=== PATIENT | female | born 2000 | race Caucasian/White ===

== ENCOUNTER 2018-06-03 16:58 | Inpatient (IN) | payer BC ==
[2018-06-03 17:41] LABS: Basophils # (A) 0.1 k/uL (0-0.2); Basophils % (A) 1 %; Eosinophils # (A) 0.2 k/uL (0-0.7); Eosinophils % (A) 2 %; HCT 36.6 % (34.0-46.0); HGB 12.4 gm/dL (11.4-16.0); Lymphocytes # (A) 2.6 k/uL (1.0-4.8); Lymphocytes % (A) 21 %; MCH 28.3 pg (25.0-35.0); MCHC 33.9 g/dL (31.0-37.0); MCV 83.6 fL (80.0-100.0); Monocytes # (A) 0.5 k/uL (0-1.0); Monocytes % (A) 4 %; Neutrophils # (A) 8.9 k/uL (1.3-7.7); Neutrophils % (A) 72 %; Platelet Count 275 k/uL (150-450); RBC 4.38 m/uL (3.80-5.40); RDW 12.6 % (11.5-15.5); WBC 12.4 k/uL (4.0-11.0)
[2018-06-03 17:42] LABS: Appearance,Urine Clear (Clear); Bacteria,Urine Rare /hpf; Bilirubin,Urine Negative (Negative); Blood,Urine Moderate (Negative); Color,Urine Dark Yellow; Glucose,Urine (UA) Negative (Negative); Ketones,Urine Negative (Negative); Leukocyte Esterase,Urine Negative (Negative); Nitrite,Urine Negative (Negative); Protein,Urine Negative (Negative); RBC,Urine 6 /hpf (0-5); Specific Gravity,Urine 1.011 (1.001-1.035); Squamous Epithelial Cell,Urine 1 /hpf (0-4); Urobilinogen,Urine <2.0 mg/dL (<2.0); WBC,Urine 2 /hpf (0-5)
[2018-06-03 17:52] LABS: ALT 26 U/L (9-52); AST 21 U/L (14-36); Albumin 4.4 g/dL (3.5-5.0); Alkaline Phosphatase 90 U/L (38-126); Anion Gap 10 mmol/L; Blood Urea Nitrogen 11 mg/dL (7-17); C Reactive Protein 31.5 mg/L (<10.0); Calcium 9.8 mg/dL (8.4-10.2); Carbon Dioxide 23 mmol/L (22-30); Chloride 105 mmol/L (98-107); Glucose 96 mg/dL (74-99); Magnesium 1.9 mg/dL (1.6-2.3); Partial Thromboplastin Time 23.8 sec (22.0-30.0); Prothrombin Time 9.8 sec (9.0-12.0); Sodium 138 mmol/L (137-145); Total Bilirubin 0.7 mg/dL (0.2-1.3); Total Protein 7.4 g/dL (6.3-8.2)
--- NOTE | 2018-06-03 18:07 | CT ---
EXAMINATION TYPE: CT brain wo/w con DATE OF EXAM: 06/03/2018 COMPARISON: None HISTORY: Left sided peripheral vision loss CT DLP: 1927.2 mGycm Automated exposure control for dose reduction was used. CONTRAST: Performed without and with IV Contrast, patient injected with 100 mL of Isovue 300. FINDINGS: Ventricles and sulci appear normal. There is no mass effect nor midline shift. There is no sign of in tracranial hemorrhage. There is no evidence of cerebral edema. There is no pathologic enhancement. Th ere is no evidence of orbital mass. Sella turcica appears normal. IMPRESSION: NORMAL CT SCAN OF THE BRAIN.
[2018-06-03 18:18] LABS: Creatine Kinase 57 U/L (30-135)
[2018-06-03 18:32] LABS: Creatine Kinase MB <0.2 ng/mL (0.0-2.4); Troponin I <0.012 ng/mL (0.000-0.034)
[2018-06-03] MEDS ORDERED: SODIUM CHLORIDE 0.9% 1,000 ML IV STA (19:26)
--- NOTE | 2018-06-03 19:26 | ED ---
Eye Problem HPI - General Chief complaint: Eye Problems Stated complaint: lt eye vision problem Time Seen by Provider: 06/03/18 17:14 Source: patient Mode of arrival: ambulatory Limitations: no limitations - History of Present Illness Initial comments: This is a 18-year-old female with a benign past medical history the onset 3 days ago of left upper visual field distortion. She states she sees corrigan or darkness and that feel no trauma no headache no fevers chills nausea vomiting sweats no history of any neurological disorders. No weakness or upper or lower extremities. She was seen by her hospital chaplain today and found have normal eye pressure is no evidence of any retinal attachment. She was sent here for further evaluation. chief complaint: eye pain - Related Data Home Medications Medication Instructions Recorded Confirmed Albuterol Inhaler [Ventolin Hfa 2 puff INHALATION RT-Q6H PRN 06/03/18 06/03/18 Inhaler] Allergies Allergy/AdvReac Type Severity Reaction Status Date / Time Penicillins Allergy Rash/Hives Verified 06/03/18 17:10 Review of Systems ROS Statement: Those systems with pertinent positive or pertinent negative responses have been documented in the HPI. ROS Other: All systems not noted in ROS Statement are negative. Past Medical History Past Medical History: No Reported History History of Any Multi-Drug Resistant Organisms: None Reported Past Surgical History: No Surgical Hx Reported Past Psychological History: No Psychological Hx Reported Smoking Status: Never smoker Past Alcohol Use History: None Reported Past Drug Use History: None Reported General Exam - General Exam Comments Initial Comments: This is a well-developed well-nourished awake alert oriented 3 female Limitations: no limitations General appearance: alert, in no apparent distress Head exam: Present: atraumatic, normocephalic, normal inspection Eye exam: Present: normal appearance, PERRL, EOMI. Absent: scleral icterus, conjunctival injection, periorbital swelling Pupils: Present: other (U Yoel dilated secondary to medication from her hospital chaplain. Some cupping of the left optic nerve area. No other abnormality seen. On confrontation patient does have distortion of the left upper ocular field) ENT exam: Present: normal exam, mucous membranes moist Neck exam: Present: normal inspection. Absent: tenderness, meningismus, lymphadenopathy Respiratory exam: Present: normal lung sounds bilaterally. Absent: respiratory distress, wheezes, rales, rhonchi, stridor Cardiovascular Exam: Present: normal rhythm, tachycardia, normal heart sounds. Absent: systolic murmur, diastolic murmur, rubs, gallop, clicks GI/Abdominal exam: Present: soft, normal bowel sounds. Absent: distended, tenderness, guarding, rebound, rigid Extremities exam: Present: normal inspection, full ROM, normal capillary refill. Absent: tenderness, pedal edema, joint swelling, calf tenderness Back exam: Present: normal inspection Neurological exam: Present: alert, oriented X3, CN II-XII intact Psychiatric exam: Present: normal affect, normal mood Skin exam: Present: warm, dry, intact, normal color. Absent: rash Course Vital Signs 06/03/18 06/03/18 06/03/18 17:02 18:19 19:16 Temperature 98.4 F 100.2 F H 99.1 F Pulse Rate 126 H 118 H 112 H Respiratory 20 16 17 Rate Blood Pressure 112/71 129/81 120/75 O2 Sat by Pulse 98 98 Oximetry Medical Decision Making - Medical Decision Making I did discuss findings with the patient family members. Also with Dr. Alicea. Patient will be admitted with neurological consultation ophthalmology consultation also MRI will be ordered. - Lab Data Result diagrams: 06/03/18 17:29 06/03/18 17:29 Lab Results 06/03/18 06/03/18 06/03/18 Range/Units 17:29 17:29 17:29 WBC 12.4 H (4.0-11.0) k/uL RBC 4.38 (3.80-5.40) m/uL Hgb 12.4 (11.4-16.0) gm/dL Hct 36.6 (34.0-46.0) % MCV 83.6 (80.0-100.0) fL MCH 28.3 (25.0-35.0) pg MCHC 33.9 (31.0-37.0) g/dL RDW 12.6 (11.5-15.5) % Plt Count 275 (150-450) k/uL Neutrophils % 72 % Lymphocytes % 21 % Monocytes % 4 % Eosinophils % 2 % Basophils % 1 % Neutrophils # 8.9 H (1.3-7.7) k/uL Lymphocytes # 2.6 (1.0-4.8) k/uL Monocytes # 0.5 (0-1.0) k/uL Eosinophils # 0.2 (0-0.7) k/uL Basophils # 0.1 (0-0.2) k/uL PT 9.8 (9.0-12.0) sec INR 1.0 (<1.2) APTT 23.8 (22.0-30.0) sec Sodium 138 (137-145) mmol/L Potassium 4.0 (3.5-5.1) mmol/L Chloride 105 (98-107) mmol/L Carbon Dioxide 23 (22-30) mmol/L Anion Gap 10 mmol/L BUN 11 (7-17) mg/dL Creatinine 0.60 (0.52-1.04) mg/dL Est GFR (CKD-EPI)AfAm >90 (>60 ml/min/1.73 sqM) Est GFR (CKD-EPI)NonAf >90 (>60 ml/min/1.73 sqM) Glucose 96 (74-99) mg/dL Calcium 9.8 (8.4-10.2) mg/dL Magnesium 1.9 (1.6-2.3) mg/dL Total Bilirubin 0.7 (0.2-1.3) mg/dL AST 21 (14-36) U/L ALT 26 (9-52) U/L Alkaline Phosphatase 90 (38-126) U/L Total Creatine Kinase (30-135) U/L CK-MB (CK-2) (0.0-2.4) ng/mL CK-MB (CK-2) Rel Index Troponin I (0.000-0.034) ng/mL C-Reactive Protein 31.5 H (<10.0) mg/L Total Protein 7.4 (6.3-8.2) g/dL Albumin 4.4 (3.5-5.0) g/dL TSH 2.780 (0.465-4.680) mIU/L Urine Color Urine Appearance (Clear) Urine pH (5.0-8.0) Ur Specific [place] (1.001-1.035) Urine Protein (Negative) Urine Glucose (UA) (Negative) Urine Ketones (Negative) Urine Blood (Negative) Urine Nitrite (Negative) Urine Bilirubin (Negative) Urine Urobilinogen (<2.0) mg/dL Ur Leukocyte Esterase (Negative) Urine RBC (0-5) /hpf Urine WBC (0-5) /hpf Ur Squamous Epith Cells (0-4) /hpf Urine Bacteria (None) /hpf Urine HCG, Qual (Not Detectd) 06/03/18 06/03/18 06/03/18 Range/Units 17:29 17:29 17:29 WBC (4.0-11.0) k/uL RBC (3.80-5.40) m/uL Hgb (11.4-16.0) gm/dL Hct (34.0-46.0) % MCV (80.0-100.0) fL MCH (25.0-35.0) pg MCHC (31.0-37.0) g/dL RDW (11.5-15.5) % Plt Count (150-450) k/uL Neutrophils % % Lymphocytes % % Monocytes % % Eosinophils % % Basophils % % Neutrophils # (1.3-7.7) k/uL Lymphocytes # (1.0-4.8) k/uL Monocytes # (0-1.0) k/uL Eosinophils # (0-0.7) k/uL Basophils # (0-0.2) k/uL PT (9.0-12.0) sec INR (<1.2) APTT (22.0-30.0) sec Sodium (137-145) mmol/L Potassium (3.5-5.1) mmol/L Chloride (98-107) mmol/L Carbon Dioxide (22-30) mmol/L Anion Gap mmol/L BUN (7-17) mg/dL Creatinine (0.52-1.04) mg/dL Est GFR (CKD-EPI)AfAm (>60 ml/min/1.73 sqM) Est GFR (CKD-EPI)NonAf (>60 ml/min/1.73 sqM) Glucose (74-99) mg/dL Calcium (8.4-10.2) mg/dL Magnesium (1.6-2.3) mg/dL Total Bilirubin (0.2-1.3) mg/dL AST (14-36) U/L ALT (9-52) U/L Alkaline Phosphatase (38-126) U/L Total Creatine Kinase 57 (30-135) U/L CK-MB (CK-2) <0.2 (0.0-2.4) ng/mL CK-MB (CK-2) Rel Index Troponin I <0.012 (0.000-0.034) ng/mL C-Reactive Protein (<10.0) mg/L Total Protein (6.3-8.2) g/dL Albumin (3.5-5.0) g/dL TSH (0.465-4.680) mIU/L Urine Color Dark Yellow Urine Appearance Clear (Clear) Urine pH 6.0 (5.0-8.0) Ur Specific [place] 1.011 (1.001-1.035) Urine Protein Negative (Negative) Urine Glucose (UA) Negative (Negative) Urine Ketones Negative (Negative) Urine Blood Moderate H (Negative) Urine Nitrite Negative (Negative) Urine Bilirubin Negative (Negative) Urine Urobilinogen <2.0 (<2.0) mg/dL Ur Leukocyte Esterase Negative (Negative) Urine RBC 6 H (0-5) /hpf Urine WBC 2 (0-5) /hpf Ur Squamous Epith Cells 1 (0-4) /hpf Urine Bacteria Rare H (None) /hpf Urine HCG, Qual Not Detected (Not Detectd) - Radiology Data Radiology results: report reviewed (I did review the imaging and report no acute findings.), image reviewed Disposition Clinical Impression: CVA (cerebral vascular accident), Visual field defect of left eye Disposition: ADMITTED IP TO THIS [facility] Condition: Stable Referrals: Bryson Whelan Jr, [Primary Care Provider] - 1-2 days
[2018-06-03] MEDS ORDERED: ASPIRIN 325 MG TAB PO STA (19:30)
--- NOTE | 2018-06-03 19:44 | ED ---
Medical Decision Making - Lab Data Result diagrams: 06/03/18 17:29 18 17:29 Lab Results 06/03/18 06/03/18 06/03/18 Range/Units 17:29 17:29 17:29 WBC 12.4 H (4.0-11.0) k/uL RBC 4.38 (3.80-5.40) m/uL Hgb 12.4 (11.4-16.0) gm/dL Hct 36.6 (34.0-46.0) % MCV 83.6 (80.0-100.0) fL MCH 28.3 (25.0-35.0) pg MCHC 33.9 (31.0-37.0) g/dL RDW 12.6 (11.5-15.5) % Plt Count 275 (150-450) k/uL Neutrophils % 72 % Lymphocytes % 21 % Monocytes % 4 % Eosinophils % 2 % Basophils % 1 % Neutrophils # 8.9 H (1.3-7.7) k/uL Lymphocytes # 2.6 (1.0-4.8) k/uL Monocytes # 0.5 (0-1.0) k/uL Eosinophils # 0.2 (0-0.7) k/uL Basophils # 0.1 (0-0.2) k/uL PT 9.8 (9.0-12.0) sec INR 1.0 (<1.2) APTT 23.8 (22.0-30.0) sec Sodium 138 (137-145) mmol/L Potassium 4.0 (3.5-5.1) mmol/L Chloride 105 (98-107) mmol/L Carbon Dioxide 23 (22-30) mmol/L Anion Gap 10 mmol/L BUN 11 (7-17) mg/dL Creatinine 0.60 (0.52-1.04) mg/dL Est GFR (CKD-EPI)AfAm >90 (>60 ml/min/1.73 sqM) Est GFR (CKD-EPI)NonAf >90 (>60 ml/min/1.73 sqM) Glucose 96 (74-99) mg/dL Calcium 9.8 (8.4-10.2) mg/dL Magnesium 1.9 (1.6-2.3) mg/dL Total Bilirubin 0.7 (0.2-1.3) mg/dL AST 21 (14-36) U/L ALT 26 (9-52) U/L Alkaline Phosphatase 90 (38-126) U/L Total Creatine Kinase (30-135) U/L CK-MB (CK-2) (0.0-2.4) ng/mL CK-MB (CK-2) Rel Index Troponin I (0.000-0.034) ng/mL C-Reactive Protein 31.5 H (<10.0) mg/L Total Protein 7.4 (6.3-8.2) g/dL Albumin 4.4 (3.5-5.0) g/dL TSH 2.780 (0.465-4.680) mIU/L Urine Color Urine Appearance (Clear) Urine pH (5.0-8.0) Ur Specific [place] (1.001-1.035) Urine Protein (Negative) Urine Glucose (UA) (Negative) Urine Ketones (Negative) Urine Blood (Negative) Urine Nitrite (Negative) Urine Bilirubin (Negative) Urine Urobilinogen (<2.0) mg/dL Ur Leukocyte Esterase (Negative) Urine RBC (0-5) /hpf Urine WBC (0-5) /hpf Ur Squamous Epith Cells (0-4) /hpf Urine Bacteria (None) /hpf Urine HCG, Qual (Not Detectd) 06/03/18 06/03/18 06/03/18 Range/Units 17:29 17:29 17:29 WBC (4.0-11.0) k/uL RBC (3.80-5.40) m/uL Hgb (11.4-16.0) gm/dL Hct (34.0-46.0) % MCV (80.0-100.0) fL MCH (25.0-35.0) pg MCHC (31.0-37.0) g/dL RDW (11.5-15.5) % Plt Count (150-450) k/uL Neutrophils % % Lymphocytes % % Monocytes % % Eosinophils % % Basophils % % Neutrophils # (1.3-7.7) k/uL Lymphocytes # (1.0-4.8) k/uL Monocytes # (0-1.0) k/uL Eosinophils # (0-0.7) k/uL Basophils # (0-0.2) k/uL PT (9.0-12.0) sec INR (<1.2) APTT (22.0-30.0) sec Sodium (137-145) mmol/L Potassium (3.5-5.1) mmol/L Chloride (98-107) mmol/L Carbon Dioxide (22-30) mmol/L Anion Gap mmol/L BUN (7-17) mg/dL Creatinine (0.52-1.04) mg/dL Est GFR (CKD-EPI)AfAm (>60 ml/min/1.73 sqM) Est GFR (CKD-EPI)NonAf (>60 ml/min/1.73 sqM) Glucose (74-99) mg/dL Calcium (8.4-10.2) mg/dL Magnesium (1.6-2.3) mg/dL Total Bilirubin (0.2-1.3) mg/dL AST (14-36) U/L ALT (9-52) U/L Alkaline Phosphatase (38-126) U/L Total Creatine Kinase 57 (30-135) U/L CK-MB (CK-2) <0.2 (0.0-2.4) ng/mL CK-MB (CK-2) Rel Index Troponin I <0.012 (0.000-0.034) ng/mL C-Reactive Protein (<10.0) mg/L Total Protein (6.3-8.2) g/dL Albumin (3.5-5.0) g/dL TSH (0.465-4.680) mIU/L Urine Color Dark Yellow Urine Appearance Clear (Clear) Urine pH 6.0 (5.0-8.0) Ur Specific [place] 1.011 (1.001-1.035) Urine Protein Negative (Negative) Urine Glucose (UA) Negative (Negative) Urine Ketones Negative (Negative) Urine Blood Moderate H (Negative) Urine Nitrite Negative (Negative) Urine Bilirubin Negative (Negative) Urine Urobilinogen <2.0 (<2.0) mg/dL Ur Leukocyte Esterase Negative (Negative) Urine RBC 6 H (0-5) /hpf Urine WBC 2 (0-5) /hpf Ur Squamous Epith Cells 1 (0-4) /hpf Urine Bacteria Rare H (None) /hpf Urine HCG, Qual Not Detected (Not Detectd) - EKG Data -: EKG Interpreted by Me EKG shows normal: sinus rhythm (Sinus tachycardia of 108. Interval 132 QRS duration 80 QT since QTC 326/436 st-t wave changes) Disposition Clinical Impression: CVA (cerebral vascular accident), Visual field defect of left eye Disposition: ADMITTED IP TO THIS [facility] Condition: Stable Referrals: Bryson Whelan Jr, DO [Primary Care Provider] - 1-2 days
[2018-06-03 20:49] VITALS: BMI 38.1
--- NOTE | 2018-06-03 20:50 | MR ---
EXAMINATION TYPE: MR MRA/MRV head wo con DATE OF EXAM: 06/03/2018 COMPARISON: None HISTORY: Left visual field deficit. TECHNIQUE: Time of flight images focusing on the [place] were performed without contrast.. 2-D and 3-D postprocessing imaging is performed. FINDINGS: There is arterial flow in the vertebrobasilar artery system. There is arterial flow in both vertebral arteries. There is arterial flow in the anterior middle and posterior cerebral arteries. T here is no mass effect. There is no evidence of aneurysm or neovascularity. There are small posterior communicating arteries. Ophthalmic arteries are symmetric. There is no evidence of orbital mass. The re is no evidence of arterial stenosis. There is normal signal pattern in the intracranial venous sinuses. There is no evidence of thrombosis . I see no filling defect. IMPRESSION: Normal MR angiogram of the brain. Normal MR venogram of the brain.
--- NOTE | 2018-06-03 23:27 | P.CNNES ---
History of Present Illness Consult date: 06/03/18 Reason for Consult: This patient is admitted with acute left eye visual field defect. History of Present Illness: This patient is a 18-year-old right-handed white female who apparently 3 days ago began noticing difficulty with vision out of her left eye. She did not initially pay much attention to this as she was working and was very busy with day-to-day activities. Apparently today she began noticing worsening symptoms of visual field loss only involving her left eye. She went to see her occupational therapy supervisor Dr. Neal who did a complete ophthalmological examination including visual field testing and dilation of her fundus. He recommended that she should go to the hospital for admission and further neurological evaluation for left eye visual field defect. She had no evidence of glaucoma or retinal detachment according to the ER note. She was seen in the emergency room by Dr. Fairchild who recommended further evaluation. She did undergo a routine computed tomography scan of the brain completed on 06/03/2018 which was reported normal. She was then sent for MRA/MRV study which is completed today. The MR angiogram of the brain was normal and the MR venogram of the brain was also normal. We reviewed the results of the MRA MRV today with the patient. We've explained to the patient this only tells us that vascular structures of the brain and we still need to obtain a MRI of the brain to rule out acute stroke. It is unclear why the MRI of the brain was not also completed through the ER today. We will order MRI of the brain to be done tomorrow morning as soon as possible for further evaluation. Her neurological examination today at bedside does reveal her to have a left upper quadrant visual field defect. This involves her entire upper hemifield. It is his only involving her left eye. Apparently she did undergo visual field testing at Dr. Neal's office. This did show her to have field defect in her left eye. The patient apparently has no ophthalmological findings for acute optic neuritis. We will review Dr. Neal's notes which the mother states she has at home and will bring them tomorrow for our review. The patient denies having any previous history of any visual loss or diplopia or double vision. She denies any symptoms of recurrent paresthesias. She has been very healthy up until this recent event involving her left eye. She continues to have normal vision in her right eye. We have recommended a complete stroke evaluation for this patient. Case was discussed in detail with the patient as well as her parents who are at bedside. All of their questions were answered. They're aware of our current findings and recommendations and we will proceed as soon as possible to arrange for MRI of the brain to be done for her tomorrow morning. We will give further recommendations pending those results. Patient is now admitted and neurology has been consulted for further evaluation and recommendations. Review of Systems Constitutional: Denies chills, Denies fever Eyes: left loss of vision, left tunnel vision/blind spots, denies blurred vision , denies pain Ears, nose, mouth and throat: Denies headache, Denies sore throat Cardiovascular: Denies chest pain, Denies shortness of breath Respiratory: Denies cough Gastrointestinal: Denies abdominal pain, Denies diarrhea, Denies nausea, Denies vomiting Genitourinary: Denies dysuria, Denies hematuria Musculoskeletal: Denies myalgias Integumentary: Denies pruritus, Denies rash Neurological: Reports loss of vision, Denies numbness, Denies weakness Psychiatric: Denies anxiety, Denies depression Endocrine: Denies fatigue, Denies weight change Past Medical History Past Medical History: No Reported History History of Any Multi-Drug Resistant Organisms: None Reported Past Surgical History: No Surgical Hx Reported Past Psychological History: No Psychological Hx Reported Smoking Status: Never smoker Past Alcohol Use History: None Reported Past Drug Use History: None Reported Medications and Allergies Home Medications Medication Instructions Recorded Confirmed Type Albuterol Inhaler [Ventolin Hfa 2 puff INHALATION RT-Q6H PRN 06/03/18 06/03/18 History Inhaler] Allergies Allergy/AdvReac Type Severity Reaction Status Date / Time Penicillins Allergy Rash/Hives Verified 06/03/18 17:10 Physical Examination - Vital Signs Vital Signs: Vital Signs Temp Pulse Pulse Resp BP BP Pulse Ox 06/03/18 20:00 97.7 F 111 H 18 118/70 97 06/03/18 19:50 100.1 F H 112 H 16 119/79 94 L 06/03/18 19:41 97.7 F 111 H 18 118/70 97 06/03/18 19:16 99.1 F 112 H 17 120/75 06/03/18 18:19 100.2 F H 118 H 16 129/81 98 06/03/18 17:02 98.4 F 126 H 20 112/71 98 Intake and Output 06/03/18 06/03/18 06/04/18 14:59 22:59 06:59 Intake Total 300 Balance 300 Intake: Oral 300 Other: Voiding Method Toilet Weight 97.7 kg - Constitutional General appearance: average body habitus, cooperative - EENT EENT: PERRL, mucous membranes moist - Respiratory Respiratory: lungs clear, normal breath sounds - Cardiovascular Cardiovascular: regular rate, normal S1, normal S2 Extremities: no peripheral edema bilaterally - Gastrointestinal Gastrointestinal: normoactive bowel sounds - Integumentary Integumentary: normal - Neurologic Cranial nerve examination: PERRL, EOMI, VFF (Patient has a left eye upper quadrant visual field defect on exam today.), V1/V2/V3 grossly intact, face symmetric, tongue midline, intact gag reflex, intact corneal reflex, normal palatal elevation Speech examination: intact Sensorimotor examination: intact Detailed motor examination: grossly full strength in all extremities Motor examination - right side: 4/5: biceps, triceps, wrist flexion, wrist extension, batter mixer helper, hip flexors, knee extensors, dorsiflexion, toe extension (EHL) , plantarflexion Motor examination - left side: 4/5: biceps, triceps, wrist flexion, wrist extension, batter mixer helper, hip flexors, knee extensors, dorsiflexion, toe extension (EHL) , plantarflexion Detailed sensory examination: intact Reflex and gait examination: intact Reflexes: 2+: ankle, bicep, knee, tricep - Musculoskeletal Musculoskeletal: no pain - Psychiatric Psychiatric: mood/affect appropriate, cooperative Results - Laboratory Findings CBC and BMP: 06/03/18 17:29 06/03/18 17:29 Abnormal Lab Findings: Abnormal Labs 06/03/18 06/03/18 06/03/18 17:29 17:29 17:29 WBC 12.4 H Neutrophils # 8.9 H C-Reactive Protein 31.5 H Urine Blood Moderate H Urine RBC 6 H Urine Bacteria Rare H Assessment and Plan (1) Occipital stroke Current Visit: Yes Status: Acute Code(s): I63.9 - CEREBRAL INFARCTION, UNSPECIFIED SNOMED Code(s): 963854937 (2) Visual field defect of left eye Current Visit: Yes Status: Acute Code(s): H53.40 - UNSPECIFIED VISUAL FIELD DEFECTS SNOMED Code(s): 56097195389786567 Plan: This patient is a pleasant 18-year-old right-handed white female who was admitted to the hospital today with symptoms of acute left eye visual field loss. Symptoms began about 3 days prior to her admission to hospital today. She was brought in to the current [facility] and was evaluated in the ER by Dr. Fairchild. She was sent for a computed tomography scan of the brain which was normal. She then was scheduled for MRA of the brain and MRV both of which came back normal. Her neurological examination revealed her to have left eye visual field defect. She was essentially admitted to Hospital. On neurological exam the patient does have a left eye upper quadrant visual field defect. It appears to be a hemifield defect involving the entire upper field. She was seen today in the ophthalmology clinic by Dr. Neal. He also did a complete ophthalmologically evaluation including visual field testing and advised the patient to come to hospital for further management and treatment. She has normal vision in her right eye. We did review the results of her neuroimaging studies in detail with the patient and her family who was at bedside. They are aware that the MRA was completed and MRV was completed and both were normal. We are strongly recommending her to have a MRI of the brain to be done tomorrow morning for further evaluation of possible right occipital stroke. The patient is in full agreement and both of her parents were also updated on her neurological findings. We will continue close follow-up with this patient during this admission. Her overall prognosis at this time remains very guarded. Neurology will continue to monitor her progress closely during this admission. Time with Patient: Greater than 30
[2018-06-04] MEDS: SODIUM CHLORIDE 0.9% 1,000 ML IV SCH (00:29)
[2018-06-04 06:47] LABS: Cholesterol 159 mg/dL (<200); HDL Cholesterol 60 mg/dL (40-60); LDL Cholesterol,Calculated 69 mg/dL (0-99); Triglycerides 149 mg/dL (<150)
[2018-06-04] MEDS: ASPIRIN 325 MG TAB PO SCH ×2 (08:12→09:54)
--- NOTE | 2018-06-04 08:53 | MR ---
EXAMINATION TYPE: MR brain wo con DATE OF EXAM: 06/04/2018 COMPARISON: CT brain 06/03/2018 HISTORY: Patient with left upper quadrant visual field defe T1-weighted sagittal, T2, FLAIR, and diffusion axial, and T2 coronal coronal views of the brain are s ubmitted. There is no evidence of acute ischemia. The ventricles, basal cisterns, and sulci overlying the conv exities are consistent with the patient's age. There is no mass effect. Craniocervical junction maintained. Sella turcica has a normal appearance. No cerebellopontine angle mass. Changes of chronic sinusitis noted. There is a nasal septal deviation . White matter: Artifact is seen in the posterior fossa. No sizable areas of abnormal signal seen withi n the visualized white IMPRESSION: 1. No acute intracranial process. 2. Changes of chronic sinusitis.
[2018-06-04 10:40] LABS: Basophils # (A) 0.1 k/uL (0-0.2); Basophils % (A) 1 %; Eosinophils # (A) 0.1 k/uL (0-0.7); Eosinophils % (A) 1 %; HCT 35.4 % (34.0-46.0); HGB 12.1 gm/dL (11.4-16.0); Lymphocytes # (A) 3.3 k/uL (1.0-4.8); Lymphocytes % (A) 34 %; MCHC 34.3 g/dL (31.0-37.0); MCV 84.8 fL (80.0-100.0); Mean Platelet Volume 9.1; Monocytes # (A) 0.7 k/uL (0-1.0); Monocytes % (A) 7 %; Neutrophils # (A) 5.3 k/uL (1.3-7.7); Neutrophils % (A) 55 %; Platelet Count 287 k/uL (150-450); RBC 4.17 m/uL (3.80-5.40); RDW 12.7 % (11.5-15.5); WBC 9.6 k/uL (4.0-11.0)
[2018-06-04 10:51] LABS: Anion Gap 10 mmol/L; Blood Urea Nitrogen 13 mg/dL (7-17); Calcium 9.4 mg/dL (8.4-10.2); Carbon Dioxide 23 mmol/L (22-30); Chloride 108 mmol/L (98-107); Glucose 88 mg/dL (74-99); Potassium 4.4 mmol/L (3.5-5.1); Sodium 141 mmol/L (137-145)
--- NOTE | 2018-06-04 11:10 | US ---
EXAMINATION TYPE: US carotid duplex BILAT DATE OF EXAM: 06/04/2018 COMPARISON: NONE CLINICAL HISTORY: Patient with left eye visual field defect.. Left eye vision problems. EXAM MEASUREMENTS: RIGHT: Peak Systolic Velocity (PSV) cm/sec ----- Right CCA: 106.0 ----- Right ICA: 106.3 ----- Right ECA: 125.1 ICA/CCA ratio: 1.0 RIGHT: End Diastole cm/sec ----- Right CCA: 38.1 ----- Right ICA: 47.1 ----- Right ECA: 26.9 LEFT: Peak Systolic Velocity (PSV) cm/sec ----- Left CCA: 96.2 ----- Left ICA: 101.1 ----- Left ECA: 125.3 ICA/CCA ratio: 1.1 LEFT: End Diastole cm/sec ----- Left CCA: 31.2 ----- Left ICA: 41.3 ----- Left ECA: 18.7 VERTEBRALS (direction of flow): Right Vertebral: Antegrade Left Vertebral: Antegrade Rhythm: Normal No significant stenosis. IMPRESSION: Mild degree of grayscale atheromatous plaquing with no sonographically evident hemodynam ically significant stenosis within either visualized carotid arterial system.
[2018-06-04] MEDS ORDERED: methylPREDNISolone SOD SUCCI 125 MG/2 ML VIAL IV STA (14:28)
--- NOTE | 2018-06-04 14:29 | ECHOF ---
Referral Reason:Thrombus MEASUREMENTS -------- HEIGHT: 160.0 cm WEIGHT: 97.5 kg BP: 125/84 RVIDd: 2.5 cm (< 3.3) IVSd: 1.1 cm (0.6 - 1.1) LVIDd: 4.5 cm (3.9 - 5.3) LVPWd: 1.1 cm (0.6 - 1.1) IVSs: 1.5 cm LVIDs: 3.1 cm LVPWs: 1.5 cm LA Diam: 3.6 cm (2.7 - 3.8) Ao Diam: 2.7 cm (2.0 - 3.7) AV Cusp: 2.0 cm (1.5 - 2.6) MV EXCURSION: 11.844 mm (> 18.000) MV EF SLOPE: 167 mm/s (70 - 150) EPSS: 0.8 cm MV E Akil: 1.17 m/s MV DecT: 162 ms MV A Akil: 0.48 m/s MV E/A Ratio: 2.45 FINDINGS -------- Resting tachycardia (HR>100bpm). This was a technically good study. The left ventricular size is normal. There is borderline concentric left ventricular hypertrophy. Overall left ventricular systolic function is normal with, an EF between 55 - 60 %. The right ventricle is normal in size. The left atrial size is normal. The right atrium is normal in size. The aortic valve is trileaflet and appears structurally normal. The mitral valve is normal. The tricuspid valve appears structurally normal. Trace/mild (physiologic) pulmonic regurgitation. The aortic root size is normal. Normal inferior vena cava with normal inspiratory collapse consistent with estimated right atrial pre ssure of 5 mmHg. There is no pericardial effusion. CONCLUSIONS -------- 1. Resting tachycardia (HR>100bpm). 2. This was a technically good study. 3. The left ventricular size is normal. 4. There is borderline concentric left ventricular hypertrophy. 5. Overall left ventricular systolic function is normal with, an EF between 55 - 60 %. 6. The right ventricle is normal in size. 7. The left atrial size is normal. 8. The right atrium is normal in size. 9. The aortic valve is trileaflet and appears structurally normal. 10. The mitral valve is normal. 11. The tricuspid valve appears structurally normal. 12. Trace/mild (physiologic) pulmonic regurgitation. 13. The aortic root size is normal. 14. Normal inferior vena cava with normal inspiratory collapse consistent with estimated right atrial pressure of 5 mmHg. 15. There is no pericardial effusion. [employer] STOCKMAN: Lesly Martell RDCS
[2018-06-04] MEDS ORDERED: ALPRAZolam 0.25 MG TAB PO PRN (14:45)
--- NOTE | 2018-06-04 14:48 | P.HPIM ---
History of Present Illness H&P Date: 06/04/18 Chief Complaint: Loss of vision in left eye 18-year-old who presented to the emergency room with a chief complaint of partial loss of vision in her left eye. Patient reports on 2017 she woke up in the morning and realized she had partial vision loss of her left eye. She did not seek treatment until , 06/03/2018 and went to a mouse breeder, Dr. Neal for evaluation. Patient underwent visual field examination revealing superior field loss. No findings were consistent with the patients vision issues. Patient was referred to the ER for further evaluation. Upon assessment at the bedside, patient states she has full vision with both of her eyes open. When patient covers her right eye, she has loss of superior vision field. Provider standing in front of patient and patient reports only being able to see from property site manager nose and down. Visual field test reveals preserved peripheral vision on the right. Patient with minimal abnormal peripheral vision on the left. Patient does report that left peripheral vision appears "a little burry". Patient denies chest pain or pressure. Denies shortness of breath. Denies cough or congestion. Denies fever chills. Denies lightheadedness or dizziness. Patient does report anxiety of being hospitalized which may account for her tachycardia. The patient has a history of asthma. She reports using her inhaler 3-4 times a year. She is a nonsmoker. Denies previous surgical history. CT Brain: Negative for an acute process. Brain MRA: Normal MR angiogram of the brain. Normal MR venogram of the brain. Carotid Doppler: No significant stenosis bilaterally Brain MRI: Negative for an acute process. No areas of acute ischemia. Laboratory data upon admission reveals WBC 12.4. Hemoglobin 12.4. Platelet count 275. INR 1.0. Sodium 138. Potassium 4.0. BUN 11. Creatinine 0.60. Glucose 96. Magnesium 1.9. Troponin negative 1. TSH 2.780. Lipid panel within normal limits. C-reactive protein 31.5. ESR 25 Urinalysis reveals: Moderate blood, RBC 6, rare bacteria The patient was admitted to the hospital under the care of Dr. Alicea. Consultations were placed to Dr. Hays and Dr. Nair. Review of Systems Those systems with pertinent positive or pertinent negative responses have been documented in the HPI Past Medical History Past Medical History: No Reported History History of Any Multi-Drug Resistant Organisms: None Reported Past Surgical History: No Surgical Hx Reported Past Psychological History: No Psychological Hx Reported Smoking Status: Never smoker Past Alcohol Use History: None Reported Past Drug Use History: None Reported Medications and Allergies Home Medications Medication Instructions Recorded Confirmed Type Albuterol Inhaler [Ventolin Hfa 2 puff INHALATION RT-Q6H PRN 06/03/18 06/03/18 History Inhaler] Allergies Allergy/AdvReac Type Severity Reaction Status Date / Time Penicillins Allergy Rash/Hives Verified 06/03/18 17:10 Physical Exam Vitals: Vital Signs Temp Pulse Pulse Resp BP BP Pulse Ox 06/04/18 12:00 98.3 F 92 20 125/82 96 06/04/18 08:00 97.7 F 120 H 16 124/59 97 06/04/18 04:00 103 H 16 125/84 97 06/04/18 00:00 97.3 F L 120 H 18 121/67 96 06/03/18 20:00 97.7 F 111 H 18 118/70 97 06/03/18 19:50 100.1 F H 112 H 16 119/79 94 L 06/03/18 19:41 97.7 F 111 H 18 118/70 97 06/03/18 19:16 99.1 F 112 H 17 120/75 06/03/18 18:19 100.2 F H 118 H 16 129/81 98 06/03/18 17:02 98.4 F 126 H 20 112/71 98 Intake and Output 06/03/18 06/04/18 06/04/18 22:59 06:59 14:59 Intake Total 300 300 360 Balance 300 300 360 Intake: Oral 300 300 360 Other: Voiding Method Toilet Toilet Toilet # Voids 2 Weight 97.7 kg GENERAL: This is a 18-year-old female in no apparent distress at the time of examination. Pleasant and cooperative. Slightly anxious due to hospitalization. HEENT: Head is atraumatic, normocephalic. Pupils are equal, round, and reactive to light. Sclerae anicteric. Conjunctivae are clear. Mucus membranes of the mouth are moist. Neck is supple. Full vision with both eyes open. When patient covers her right eye, she has loss of superior vision field. Provider standing in front of patient and patient reports only being able to see from property site manager nose and down. Visual field test reveals preserved peripheral vision on the right. Patient with minimal abnormal peripheral vision on the left. RESPIRATORY: Clear to ausculation. No wheezes, rales, or rhonchi. No use of accessory muscles. Patient maintaining oxygen saturation greater than 92% CARDIOVASCULAR: Regular rate and rhythm. S1 and S2 noted. No systolic or diastolic murmur auscultated. No JVD noted. No S3 or S4 noted. GASTROINTESTINAL: No distention noted. Abdomen soft and round. Normal active bowel sounds auscultated x 4 quadrants. No pain or tenderness noted upon palpation. INTEGUMENTARY: No cyanosis. No jaundice. No rashes noted. No cellulitis noted. EXTREMITIES: 2+ peripheral pulses. No evidence of peripheral edema. No calf tenderness noted. NEUROLOGIC: Cranial nerves II-XII intact. PSYCHIATRIC: Awake, alert, and oriented X 3. Appropriate affect. Intact judgement and insight. Results CBC & Chem 7: 06/04/18 05:57 06/04/18 05:57 Labs: Abnormal Lab Results - Last 24 Hours (Table) 06/03/18 06/03/18 06/03/18 Range/Units 17:29 17:29 17:29 WBC 12.4 H (4.0-11.0) k/uL Neutrophils # 8.9 H (1.3-7.7) k/uL ESR (0-20) mm/hr Chloride (98-107) mmol/L Creatinine (0.52-1.04) mg/dL C-Reactive Protein 31.5 H (<10.0) mg/L Urine Blood Moderate H (Negative) Urine RBC 6 H (0-5) /hpf Urine Bacteria Rare H (None) /hpf 06/04/18 06/04/18 Range/Units 05:57 05:57 WBC (4.0-11.0) k/uL Neutrophils # (1.3-7.7) k/uL ESR 25 H (0-20) mm/hr Chloride 108 H (98-107) mmol/L Creatinine 0.50 L (0.52-1.04) mg/dL C-Reactive Protein (<10.0) mg/L Urine Blood (Negative) Urine RBC (0-5) /hpf Urine Bacteria (None) /hpf Thrombosis Risk Factor Assmnt - Choose All That Apply Any of the Below Risk Factors Present?: No Other Risk Factors: No Other congenital or acquired thrombophilia - If yes, enter type in comment: No Thrombosis Risk Factor Assessment Level: Very Low Risk Assessment and Plan Plan: ASSESSMENT: Left superior visual field loss x 4 days, etiology unclear, differential includes sarcoidosis due to family history. outpatient ophthalmology eval did not reveal findings consistent with condition, neurology and ophthalmology following Elevated ESR/CRP Tachycardia, suspect due to anxiety Obesity: BMI 38.2 PLAN: Neurology and ophthalmology on consult. Appreciate recommendations and input Will consult Dr. Jaimes to evaluate for sarcoidosis (patients father and grandma have sarcoidosis) Obtain serum SEGUNDO Urine drug screen Solumedral 60mg IV Q6 hours Novolog scale ACHS per steroid protocol Xanax 0.25mg q8 hours PRN for anxiety Report from mouse breeder has been copied and placed in chart if consulting providers would like to view Home meds as appropriate Monitor labs GI prophylaxis: Protonix 40 mg PO Daily DVT prophylaxis: GAMA hose to bilateral LE Monitor vital signs and address as appropriate Discharge planning: Patient to return home when stable Further recommendations pending patient's course Nurse practitioner note has been reviewed by physician. Signing provider agrees with the documented findings, assessment, and plan of care.
[2018-06-04 15:25] LABS: Amphetamine Screen,Urine Not Detected (NotDetected); Barbiturate Screen,Urine Not Detected (NotDetected); Benzodiazepines Screen,Urine Not Detected (NotDetected); Cocaine Screen,Urine Not Detected (NotDetected); Methadone Screen, Urine Not Detected (NotDetected); Opiate Screen,Urine Not Detected (NotDetected); Oxycodone Screen, Urine Not Detected (NotDetected); Phencyclidine Screen,Urine Not Detected (NotDetected); Tricyclic Antidepressant,Urine Not Detected (NotDetected); Urn Cannabinoid Scrn Not Detected (NotDetected)
[2018-06-04 17:14] LABS: Glucose,Whole Blood 107 mg/dL (75-99)
[2018-06-04] MEDS: INSULIN ASPART 100 UNIT/ML 1 ML 10 ML VIAL SQ SCH (17:14)
[2018-06-04] MEDS: methylPREDNISolone SOD SUCCI 125 MG/2 ML VIAL IV SCH (19:06)
--- NOTE | 2018-06-04 19:44 | MR ---
EXAMINATION TYPE: MR orbits wo/w con DATE OF EXAM: 06/04/2018 COMPARISON: None HISTORY: Left eye visual field deficit TECHNIQUE: Multiplanar multiecho imaging of the orbits was performed without and with IV contrast. The contrast was gadolinium 10 mL. IMPRESSION: The globes are symmetric. There is no evidence of orbital mass. Optic nerves are fairly s ymmetric. There is no evidence of retro-orbital mass. There is no pathologic enhancement. Pituitary s talk is in the midline. Optic chiasm appears normal. There is no evidence of sellar mass. The visuali zed occipital lobes appear normal. IMPRESSION: Normal exam. The exam fails to demonstrate a cause for left side visual field deficit.
--- NOTE | 2018-06-04 20:58 | CONS ---
CONSULTATION CHIEF COMPLAINT: This is 18 year old young female complaining of decreased vision in the left eye for the last 3 days. The patient noticed that the left superior visual field is lost and has been lost since then. Denies any history of headaches or injury. Eye examination: Vision right eye 20/20, left eye 20/20. Extraocular motility full. Tension applanation 60 mmHg both eyes. Front of the eye normal. Pupils equal and active. Retina shows a thinning of the superior retina. Disks looked normal. Peripheral retina no obvious detachment seen with indirect. View is not excellent due to the old indirect we have in the hospital. ASSESSMENT: Left superior field defect. PLAN: The patient had MRI and CT scan, which were normal. I suggest MRI of the left orbit with contrast to rule out any orbital tumor or retrobulbar disease. I also suggest to see the patient in the office to check the optic disc and to check the retina for any fluid, not able see here in the hospital with unavailability of the higher technology equipment. I will be watching for the results of the MRI and I will decide accordingly. Thank you for this consultation. MMODL / IJN: [id number] /
[2018-06-04 21:05] LABS: Glucose,Whole Blood 246 mg/dL (75-99)
[2018-06-04 23:01] LABS: Hemoglobin A1C 4.8 % (4.0-6.0)
[2018-06-05] MEDS: INSULIN ASPART 100 UNIT/ML 1 ML 10 ML VIAL SQ SCH ×3 (00:54→13:03)
[2018-06-05] MEDS: methylPREDNISolone SOD SUCCI 125 MG/2 ML VIAL IV SCH ×3 (00:57→11:28)
[2018-06-05] MEDS: SODIUM CHLORIDE 0.9% 1,000 ML IV SCH (01:38)
[2018-06-05 05:47] LABS: Glucose,Whole Blood 142 mg/dL (75-99)
--- NOTE | 2018-06-05 07:27 | P.PN ---
Subjective Progress Note Date: 06/04/18 This patient is a pleasant 18-year-old left-handed white female who was admitted yesterday to the [facility] with symptoms of acute vision changes involving her left eye. Symptoms had been present for 3 days prior to her admission. She was seen in the outpatient ophthalmology clinic yesterday by Dr. Neal. She underwent several ophthalmological testing including visual field testing and was diagnosis having a visual field defect involving her left eye. She was recommended to come to the hospital for further evaluation and admission. Patient's neurological examination yesterday revealed her to have a left eye upper quadrant visual field defect which was apparently confirmed on her visual field testing as well. These findings suggest possibility of acute occipital stroke and for this reason she was recommended to have an MRI of the brain done for further evaluation. Yesterday in the emergency room she underwent MRA MRV both of which were normal. Patient was sent for MRI of the brain today and we're waiting the final report. Neurologically there is been no change in her overall neurological findings from yesterday. The patient was seen by Dr. Jaime from ophthalmology today. He did review her MRA and MRI results that were done earlier. As noted MRI of the brain failed to reveal any evidence of acute stroke. MRA of the face head and neck is now been ordered and this also was completed this evening and came back negative. Case was discussed today with Dr. Jaime. He is strongly recommending the patient should be seen in the ophthalmology clinic tomorrow morning as soon as possible for possible retinal damage to the left eye. He needs to perform further testing and make a decision if the patient may have a retinal tear in the left eye. We have discussed these findings in detail with the patient and her parents who are at bedside. They're in full agreement and we will make arrangements to have the patient seen early tomorrow morning and Dr. Jaime's ophthalmology clinic for immediate evaluation and treatment. Once again her MRI of the brain failed to reveal any evidence of acute stroke. Given her visual field defect in the left eye there is concern now for possible retinal injury producing these findings. The patient is also being evaluated for sarcoidosis. Apparently there is a strong family history. Her ESR and C- reactive protein were slightly elevated as well. We have discussed all of these findings in detail today with her parents as well as with the patient. We will proceed with ophthalmology evaluation by Dr. Jaime for tomorrow morning and will await his further recommendations. We will continue close neurological follow-up for the patient during this admission. Her overall prognosis at this time remains guarded. Objective - Vital Signs Vital signs: Vital Signs Temp 97.7 F 06/04/18 08:00 Pulse 120 H 06/04/18 08:00 Resp 16 06/04/18 08:00 BP 124/59 06/04/18 08:00 Pulse Ox 97 06/04/18 08:00 Intake & Output 06/03/18 06/04/18 06/04/18 18:59 06:59 18:59 Intake Total 600 Balance 600 Weight 99.972 kg 97.7 kg Intake: Oral 600 Other: Voiding Method Toilet - Exam Physical examination: PHYSICAL EXAMINATION: Patient is resting comfortably in bed. VITAL SIGNS: Blood pressure is [114/74]. Heart rate is [89]. Respiration is [17] . Temperature is [98.0]. HEENT: Head is atraumatic, neck is supple, there were no carotid bruits. CHEST: Lungs are clear to auscultation and percussion. CARDIAC: S1, S2 normal rate and rhythm. There is no murmur. ABDOMEN: Soft and nontender. Bowel sounds are present. EXTREMITIES: There is no pedal edema. Peripheral pulses are present. Neurological examination: Patient's neurological examination is unchanged from yesterday. She continues to demonstrate evidence of a left eye visual field defect involving the left upper quadrant. - Labs CBC & Chem 7: 06/04/18 05:57 06/04/18 05:57 Labs: Abnormal Lab Results - Last 24 Hours (Table) 06/03/18 06/03/18 06/03/18 Range/Units 17:29 17:29 17:29 WBC 12.4 H (4.0-11.0) k/uL Neutrophils # 8.9 H (1.3-7.7) k/uL C-Reactive Protein 31.5 H (<10.0) mg/L Urine Blood Moderate H (Negative) Urine RBC 6 H (0-5) /hpf Urine Bacteria Rare H (None) /hpf Assessment and Plan (1) Occipital stroke Current Visit: Yes Status: Acute Code(s): I63.9 - CEREBRAL INFARCTION, UNSPECIFIED SNOMED Code(s): 732583411 (2) Visual field defect of left eye Current Visit: Yes Status: Acute Code(s): H53.40 - UNSPECIFIED VISUAL FIELD DEFECTS SNOMED Code(s): 83191168026704767 Plan: This patient is a pleasant 18-year-old female who was admitted to hospital with visual field defect involving her left side. She was initially seen by Dr. Neal who recommended she go to the hospital for immediate evaluation. There was concern the patient may have suffered an acute occipital stroke to explain her visual field defect. Patient underwent MRA MRI of the brain both of which were normal. She also today had MRI of the head and neck and face. All of the studies have come back negative. The patient was seen today by Dr. Jaime from ophthalmology and he did a extensive and thorough evaluation of this patient today. Given the findings of negative neuroimaging studies he is very much concerned that she has a retinal tear involving the left eye. He is recommending the patient to have immediate testing to be done in his office tomorrow morning so that a definitive diagnosis can be made. She may require further immediate surgical intervention depending on the results. We have discussed all of these findings in detail today with Dr. Jaime as well as the patient and both of her parents at bedside. They're aware of her critical condition at this time and we will proceed to have the patient discharged home tomorrow morning to be seen immediately by Dr. Jaime in his ophthalmology clinic. He will make further recommendations depending on his findings. This case was discussed at length with the patient and both of her parents at bedside. All their questions were answered. They're aware of our recommendations and we will await further input from Dr. Jaime regarding his testing and further results. Patient is to be discharged home tomorrow morning and to follow-up with Dr. Jaime in his ophthalmology clinic immediately thereafter discharge. We will continue close neurological follow-up for this patient during this admission.
[2018-06-05] MEDS ORDERED: PANTOPRAZOLE 40 MG TABLET PO SCH (07:30)
--- NOTE | 2018-06-05 10:10 | P.PN ---
Subjective Progress Note Date: 06/05/18 This patient is a pleasant 18-year-old left-handed white female who was admitted yesterday to the [facility] with symptoms of acute vision changes involving her left eye. Symptoms had been present for 3 days prior to her admission. She was seen in the outpatient ophthalmology clinic yesterday by Dr. Neal. She underwent several ophthalmological testing including visual field testing and was diagnosis having a visual field defect involving her left eye. She was recommended to come to the hospital for further evaluation and admission. Patient's neurological examination yesterday revealed her to have a left eye upper quadrant visual field defect which was apparently confirmed on her visual field testing as well. These findings suggest possibility of acute occipital stroke and for this reason she was recommended to have an MRI of the brain done for further evaluation. Yesterday in the emergency room she underwent MRA MRV both of which were normal. Patient was sent for MRI of the brain today and we're waiting the final report. Neurologically there is been no change in her overall neurological findings from yesterday. The patient was seen by Dr. Jaime from ophthalmology today. He did review her MRA and MRI results that were done earlier. As noted MRI of the brain failed to reveal any evidence of acute stroke. MRA of the face head and neck is now been ordered and this also was completed this evening and came back negative. Case was discussed today with Dr. Jaime. He is strongly recommending the patient should be seen in the ophthalmology clinic tomorrow morning as soon as possible for possible retinal damage to the left eye. He needs to perform further testing and make a decision if the patient may have a retinal tear in the left eye. We have discussed these findings in detail with the patient and her parents who are at bedside. They're in full agreement and we will make arrangements to have the patient seen early tomorrow morning and Dr. Jaime's ophthalmology clinic for immediate evaluation and treatment. Once again her MRI of the brain failed to reveal any evidence of acute stroke. Given her visual field defect in the left eye there is concern now for possible retinal injury producing these findings. The patient is also being evaluated for sarcoidosis. Apparently there is a strong family history. Her ESR and C- reactive protein were slightly elevated as well. We have discussed all of these findings in detail today with her parents as well as with the patient. We will proceed with ophthalmology evaluation by Dr. Jaime for tomorrow morning and will await his further recommendations. The patient was sent this morning to Dr. Jaime's office. His we will exam findings were discussed today over the telephone. There appears to be some disc pallor involving the left optic nerve with no other signs of retinal detachment. We did review the MRI results of the brain today with the radiologist Dr. Puga. There is a small area of change suggesting possibility of ischemia versus demyelination in the right optic pathway. Given this finding we have recommended the patient to be evaluated by cardiology for a NIA procedure. The differential diagnosis also includes possibility of MS. All of these findings were discussed today with the patient and her 2 parents in great detail. We will obtain a cardiology consultation for NIA procedure today. We will likely want to proceed with a lumbar puncture as well for further evaluation for MS. All of these findings and recommendations have been discussed in detail with the patient and her parents. We will proceed as outlined above. Her overall prognosis at this time remains guarded. Objective - Vital Signs Vital signs: Vital Signs Temp 98.0 F 06/05/18 04:00 Pulse 89 06/05/18 04:00 Resp 17 06/05/18 04:00 BP 113/74 06/05/18 04:00 Pulse Ox 95 06/05/18 04:00 Intake & Output 06/04/18 06/05/18 06/05/18 18:59 06:59 18:59 Intake Total 720 490 Balance 720 490 Weight 98.9 kg Intake: IV 10 0.9 10 Oral 720 480 Other: Voiding Method Toilet Toilet # Voids 2 3 - Exam Physical examination: PHYSICAL EXAMINATION: Patient is resting comfortably in bed. VITAL SIGNS: Blood pressure is [114/74]. Heart rate is [89]. Respiration is [17] . Temperature is [98.0]. HEENT: Head is atraumatic, neck is supple, there were no carotid bruits. CHEST: Lungs are clear to auscultation and percussion. CARDIAC: S1, S2 normal rate and rhythm. There is no murmur. ABDOMEN: Soft and nontender. Bowel sounds are present. EXTREMITIES: There is no pedal edema. Peripheral pulses are present. Neurological examination: Patient's neurological examination is unchanged from yesterday. She continues to demonstrate evidence of a left eye visual field defect involving the left upper quadrant. - Labs CBC & Chem 7: 06/04/18 05:57 06/04/18 05:57 Labs: Abnormal Lab Results - Last 24 Hours (Table) 06/04/18 06/04/18 06/04/18 Range/Units 05:57 05:57 17:10 ESR 25 H (0-20) mm/hr Chloride 108 H (98-107) mmol/L Creatinine 0.50 L (0.52-1.04) mg/dL POC Glucose (mg/dL) 107 H (75-99) mg/dL 06/04/18 06/05/18 Range/Units 21:04 05:45 ESR (0-20) mm/hr Chloride (98-107) mmol/L Creatinine (0.52-1.04) mg/dL POC Glucose (mg/dL) 246 H 142 H (75-99) mg/dL Assessment and Plan (1) Occipital stroke Current Visit: Yes Status: Acute Code(s): I63.9 - CEREBRAL INFARCTION, UNSPECIFIED SNOMED Code(s): 487382253 (2) Visual field defect of left eye Current Visit: Yes Status: Acute Code(s): H53.40 - UNSPECIFIED VISUAL FIELD DEFECTS SNOMED Code(s): 91350040352413742 Plan: This patient is a pleasant 18-year-old female who is being evaluated for acute visual field defect involving her left eye. She was seen by Dr. nasra dai yesterday from ophthalmology. He recommended the patient have more extensive testing done this morning at his office. Patient was sent there this morning and her clinical findings and case was discussed at length today with Dr. ramirez over the phone. He did not find any evidence for retinal detachment. There is some disc pallor noted on the optic nerve. We did review the MRI of the brain today with the radiologist Dr. Lepe who did find an area of possible ischemia versus demyelination in the right optic pathway. We have recommended the patient to undergo a NIA procedure for further evaluation. She will also likely need a lumbar puncture to be done for further evaluation for MS. All of these findings were discussed today with the patient and her parents. We will continue close neurological follow-up for the patient during this admission. Her overall prognosis at this time remains guarded.
[2018-06-05] MEDS: ASPIRIN 325 MG TAB PO SCH (11:28)
[2018-06-05 12:01] LABS: Glucose,Whole Blood 149 mg/dL (75-99)
[2018-06-05 13:05] VITALS: BP 126/72; PULSE 96; RESP 18; TEMP 98.5
--- NOTE | 2018-06-05 13:19 | P.DS ---
Providers Date of admission: 06/03/18 19:30 Expected date of discharge: 06/05/18 Attending physician: Nathan Alciea Consults: 06/03/18 19:31 Consult Physician Routine Consulting Provider: Yeni Nair Consult Reason/Comments: Left Visual field defect in 3 days Do you want consulting provider notified?: Yes Consult Physician Routine Consulting Provider: Josefa Hays Consult Reason/Comments: Left visual field defect Do you want consulting provider notified?: Yes 06/04/18 14:29 Consult Physician Urgent Consulting Provider: Andre Jaimes Consult Reason/Comments: r/o sarcoidosis (family hx), elevated CRP/ESR Do you want consulting provider notified?: Yes 06/05/18 11:00 Consult Physician Urgent Consulting Provider: Rahat Shirley Consult Reason/Comments: Possible acute stroke with visual field loss. Do you want consulting provider notified?: Yes Primary care physician: Nathan Alicea - Discharge Diagnosis(es) (1) Abnormal MRI of the head Current Visit: Yes Status: Acute (2) Hemianopsia Current Visit: Yes Status: Acute Onset Date: 06/01/18 (3) Visual field defect of left eye Current Visit: Yes Status: Acute Hospital Course: 18-year-old who presented to the emergency room with a chief complaint of partial loss of vision in her left eye. Patient reports on 2017 she woke up in the morning and realized she had partial vision loss of her left eye. She did not seek treatment until , 06/03/2018 and went to a director of respiratory therapy, Dr. Neal for evaluation. Patient underwent visual field examination revealing superior field loss. No findings were consistent with the patients vision issues. Patient was referred to the ER for further evaluation. Upon assessment at the bedside, patient states she has full vision with both of her eyes open. When patient covers her right eye, she has loss of superior vision field. Provider standing in front of patient and patient reports only being able to see from fitness attendant nose and down. Visual field test reveals preserved peripheral vision on the right. Patient with minimal abnormal peripheral vision on the left. Patient does report that left peripheral vision appears "a little burry". Patient denies chest pain or pressure. Denies shortness of breath. Denies cough or congestion. Denies fever chills. Denies lightheadedness or dizziness. Patient does report anxiety of being hospitalized which may account for her tachycardia. The patient has a history of asthma. She reports using her inhaler 3-4 times a year. She is a nonsmoker. Denies previous surgical history. CT Brain: Negative for an acute process. Brain MRA: Normal MR angiogram of the brain. Normal MR venogram of the brain. Carotid Doppler: No significant stenosis bilaterally Brain MRI: Negative for an acute process. No areas of acute ischemia. Laboratory data upon admission reveals WBC 12.4. Hemoglobin 12.4. Platelet count 275. INR 1.0. Sodium 138. Potassium 4.0. BUN 11. Creatinine 0.60. Glucose 96. Magnesium 1.9. Troponin negative 1. TSH 2.780. Lipid panel within normal limits. C-reactive protein 31.5. ESR 25 Urinalysis reveals: Moderate blood, RBC 6, rare bacteria The patient was admitted to the hospital under the care of Dr. Alicea. Consultations were placed to Dr. Hays and Dr. Nair. 06/05/2018: MRI orbits showed questionable lesion in the right optic nerve possibly ischemic versus possibly demyelination. seen the patient in his office today for detailed eye exam and did not find a retinal detachment. She has a strong family history in her father and grandmother of sarcoidosis. Her Solitario level was normal at 41. She was started on IV Solu-Medrol at 60 mg every 6 with a loading dose of 125 mg for prophylaxis. She remained stable throughout hospital stay. I discussed her case with Dr. Alejandra. Her parents and her. We all agreed a substantial workup is needed to determine the cause of this. It was felt that a tertiary care center would be the best place to do this at. She'll be transferred to [facility] for further evaluation. Patient Condition at Discharge: Stable Plan - Discharge Summary Discharge Rx Participant: No New Discharge Prescriptions: New Aspirin 325 mg PO DAILY tab Pantoprazole [Protonix] 40 mg PO AC-BRKFST tablet. Continue Albuterol Inhaler [Ventolin Hfa Inhaler] 2 puff INHALATION RT-Q6H PRN PRN Reason: Shortness Of Breath Discharge Medication List Albuterol Inhaler [Ventolin Hfa Inhaler] 2 puff INHALATION RT-Q6H PRN 06/03/18 [ History] Aspirin 325 mg PO DAILY tab 06/05/18 [Rx] Pantoprazole [Protonix] 40 mg PO AC-BRKFST tablet. 06/05/18 [Rx] Follow up Appointment(s)/Referral(s): Bryson Whelan Jr, DO [Doctor of Osteopathic Medicine] - 10 Days Yeni Nair MD [STAFF PHYSICIAN] - 10 Days Discharge Disposition: OTHER INSTITUTION NOT DEFINED
== END 2018-06-05 15:43 | disposition short-term general hospital (02) | DRG 123 ==
LOC: EC 16:58 → 6SEL 19:30
PROVIDERS: ADMIT Family Medicine; ATTEND Family Medicine
DX: H53.40 Unspecified visual field defects (principal); E66.9 Obesity, unspecified; F41.9 Anxiety disorder, unspecified; H54.62 Unqualified visual loss, left eye, normal vision right eye; J45.909 Unspecified asthma, uncomplicated; R79.82 Elevated C-reactive protein (CRP); R70.0 Elevated erythrocyte sedimentation rate; R90.89 Other abnormal findings on diagnostic imaging of central nervous system; H57.10 Ocular pain, unspecified eye; Z88.0 Allergy status to penicillin; Z68.38 Body mass index [BMI] 38.0-38.9, adult; Z84.89 Family history of other specified conditions
CPT/HCPCS: 36415; 70470; 70543; 70544; 70551; 80048; 80053; 80061; 80306; 81001; 81025; 82164; 82550; 82553; 83036; 83735; 84443; 84484; 85025; 85610; 85652; 85730; 86140; 93005; 93306; 93880; 99285

== ENCOUNTER → 2021-09-06 | Outpatient (CLI) | payer BC ==
--- NOTE | 2021-09-06 07:02 | MR ---
EXAMINATION TYPE: MR brain wo/w con DATE OF EXAM: 09/06/2021 COMPARISON: MR brain and orbits June 04, 2018. CT brain June 03, 2018 HISTORY: Unilateral vestibular weakness, had loss of feeling on rt side of body, double vision TECHNIQUE: Multiplanar, multisequence images of the brain and brainstem is performed without and with IV contras t, utilizing 7 mL intravenous Gadavist . FINDINGS: Diffusion weighted images demonstrate no evidence of a recent infarct or other diffusion ab normality. The ventricular system and cisternal spaces are normal in size and appearance. The brain volume is age appropriate. There are new scattered foci of T2 hyperintensity throughout the white mat ter bilaterally. Approximately 20 somewhat larger T2 hyperintense lesions are present. For reference there is 1.7 x 1.1 cm left frontal periventricular lesion axial image 17 noted. For reference there i s a 12 x 8 mm lesion in the deep right matter of the parietal temporal junction just lateral to the p utamen axial image 15. There are subtle hyperintense lesions throughout the posterior fossa including 10 x 5 mm lesion right cerebellum on axial image 8 and the anterior left lateral lower jarred 14 x 8 m m lesion same image. Some scattered areas of T1 hypointensity noted reference axial image 47 series 8 03. No enhancing lesions are present. Midline structures demonstrate normal morphology. The craniocervical junction appears within normal limits. Post contrast images demonstrate no abnormal enhancement or enhancing lesions. The dural radha ous sinuses appear patent. The visualized sinuses are clear and the globes are intact. IMPRESSION: Moderate nonspecific white matter changes favor product of demyelinating disease in patie nt of this age based on distribution and number of lesions. Advise neurology referral.
== END | disposition home or self-care (01) ==
LOC: RADMRIMAIN 05:56
PROVIDERS: ATTEND Family Medicine
DX: G93.89 Other specified disorders of brain (principal)
CPT/HCPCS: 70553; A9585